=== PATIENT | female | born 1995 | race African-American/Black ===

== ENCOUNTER 2018-07-02 08:38 | Outpatient (CLI) | payer OTHER ==
--- NOTE | 2018-07-02 10:44 | ULT ---
OBSTETRICAL ULTRASOUND: DATE: 07/02/2018. HISTORY: A 23-year-old female undergoing assessment for size and dates. TECHNIQUE: Multiplanar, campos scale sonographic imaging of the gravid uterus obtained. FINDINGS: Single intrauterine gestation present with a vertex presentation. Placenta is located posteriorly wi th no evidence for previa or abruption. The stomach, bladder, umbilical cord insertion, and kidneys appear grossly unremarkable. Three -vessel cord is documented. spine appears grossly unremarkable. The intracranial conten ts and nose/lips appear within normal limits as well. Four-chamber heart view appears grossly unrema rkable, with a heart rate of 150 b.p.m. Amniotic fluid index is 14.3 cm. BIOMETRY: BPD 4.6 cm, 20 weeks 0 day HC 18.2 cm, 20 weeks 5 days AC 17.0 cm, 22 weeks 1 day FL 3.6 cm, 21 weeks 4 days Average age based on ultrasound is 21 weeks 1 day. Estimated weight is 437 gm +/- 64 gm (62nd percentile). Estimated date of delivery is 11/11/2018. IMPRESSION: Single intrauterine gestation as detailed above. No abnormalities are noted. POS: [facility]
== END 2018-07-02 08:39 | disposition home or self-care (01) ==
LOC: BICULT 08:38
PROVIDERS: ATTEND Family Medicine
DX: Z34.92 Encounter for supervision of normal pregnancy, unspecified, second trimester (principal); Z3A.17 17 weeks gestation of pregnancy
CPT/HCPCS: 76805

== ENCOUNTER 2018-10-21 15:55 | Day surgery (SDC) | payer OTHER ==
[2018-10-21 16:25] VITALS: BP 137/81; TEMP 97.8; BMI 38.0
--- NOTE | 2018-10-21 16:52 | PDOC.LDHP ---
Labor and Delivery H&P Chief complaint: contractions HPI: 23 y/o at 37w0d, patient of Dr. Santiago Nava, presents with abdominal pain from umbilicus to pubic bone. Denies VB, LOF, or other complaints. ROS neg for HEENT, cv, pulm, gi, gu, neuro, psych, skin, musculoskeletal or constitutional symptoms other than mentioned above. OB History Details: 1 LTCS x 2 Current complications: other (GC this ) Past Medical History: None Previous surgical history: low tranverse CS (x2) Allergies/Adverse Reactions: Allergies Allergy/AdvReac Type Severity Reaction Status Date / Time No Known Allergies Allergy Verified 10/21/18 16:24 Social history: none - Physical Exam Vital signs reviewed and normal: yes General: NAD, resting Lungs: nonlabored breathing Abdomen: gravid Extremeties: no edema FHT: category 1 (140s, mod variability, + accels, no decels) [place] contractions every: occasional - Vaginal Exam cm dilated: 0 Effacement: 0% Station: -3 - Assessment 23 y/o at 37w0d with musculoskeletal discomforts of . status reassuring with reactive NST. - Plan -: D/c home with precautions. Advised to keep all appointments.
== END 2018-10-21 17:00 | disposition home or self-care (01) ==
LOC: L&D/OP 15:55
PROVIDERS: ATTEND Family Medicine
DX: O26.893 Other specified pregnancy related conditions, third trimester (principal); R10.2 Pelvic and perineal pain; Z3A.37 37 weeks gestation of pregnancy; Z98.891 History of uterine scar from previous surgery
CPT/HCPCS: 99282